=== PATIENT | female | born 1950 | race Caucasian/White ===

== ENCOUNTER → 2016-12-14 | Outpatient (CLI) | payer OTHER ==
--- NOTE | 2016-12-14 16:45 | MG ---
Examination: Unilateral left diagnostic mammogram and left breast ultrasound. Recent fall with devel opment of a left breast lump. Clinical history: Personal history of left breast carcinoma with left lumpectomy in 1996. Technique: Multiple digital images of the left breast were obtained. Targeted left breast ultrasound was also obtained evaluating the retroareolar region of the left breast in the area of palpable con cern. Comparison: 07/12/2016. Findings: The left breast is composed of scattered fibroglandular densities. A pacemaker device partially obsc ures visualization of the superior portion of the left breast. There are stable postsurgical changes from a left lumpectomy. Benign-appearing calcifications are no erika in the left breast. There is a new ill-defined area of increased density seen in the retroareolar region, correlating wi th the area of palpable concern. Targeted left breast ultrasound evaluating the retroareolar region of the left breast reveals an annie roximately 3.3 x 1.4 x 2.4 cm heterogeneous area with cystic and solid components seen at the 9 o'cl ock position in the retroareolar region of the left breast, correlating with the area of palpable co ncern. Findings likely represent an evolving hematoma. A followup left diagnostic mammogram and left breast ultrasound is recommended in 3 months to ensure resolution of the findings. Impression: 1. Probable evolving hematoma in the retroareolar region of the left breast, as described above. BI-RADS category 3/III (THREE) - PROBABLY BENIGN FINDING; SHORT INTERVAL FOLLOW-UP SUGGESTED. Recommend a followup left diagnostic mammogram and left breast ultrasound in 3 months to ensure reso lution of the findings. Diagnostic CAD was utilized and reviewed. * 0 (ZERO) - ASSESSMENT INCOMPLETE; ADDITIONAL IMAGING IS NEEDED. * 0C - ASSESSMENT INCOMPLETE, NEEDS ADDITIONAL IMAGING EVALUATION AND/OR PRIOR MAMMOGRAMS FOR COMPAR SUNITA. * 1/1 (ONE) - NEGATIVE. * 2/II (TWO) - BENIGN FINDINGS. * 3/III (THREE) - PROBABLY BENIGN FINDING; SHORT INTERVAL FOLLOW-UP SUGGESTED. * 4/IV (FOUR) - SUSPICIOUS ABNORMALITY; BIOPSY SHOULD BE CONSIDERED. * 5/V - HIGHLY SUSPICIOUS OF MALIGNANCY; BIOPSY SHOULD BE PERFORMED. * 6/IV - KNOWN BIOPSY PROVEN MALIGNANCY-APPROPRIATE ACTION SHOULD BE TAKEN. A NEGATIVE X-RAY REPORT SHOULD NOT DELAY BIOPSY IF A DOMINANT OR CLINICALLY SUSPICIOUS MASS IS PRESENT; 4 TO 8 PERCENT OF CANCERS ARE NOT IDENTIFIED BY X-RAY. A NEGATIVE REPORT MAY REINFORCE THE CLINICAL IMPRESSION. ADENOSIS AND DENSE BREASTS MAY OBSCURE AN UNDERLYING NEOPLASM. Reported By:
== END | disposition home or self-care (01) ==
LOC: RAD 14:22
PROVIDERS: ATTEND Internal Medicine
DX: N64.59 Other signs and symptoms in breast (principal); N63 Unspecified lump in breast; Z91.81 History of falling; Z85.3 Personal history of malignant neoplasm of breast
CPT/HCPCS: 76642; 77065

== ENCOUNTER → 2017-03-15 | Outpatient (CLI) | payer OTHER ==
--- NOTE | 2017-03-15 14:22 | MG ---
HISTORY: 3 month follow up left breast hematoma status post trauma Left breast digital diagnostic mammography with CAD. Comparison: December 14, 2016, July 12, 2016, and July 07, 2015 FINDINGS: CC and MLO projections of the left breast were obtained. Scattered fibroglandular tissue is seen to be present without suspicious interval change. The previously described subareolar focal asymmetry h as demonstrated decreased size and density with central lucency most consistent with resolving hemato ma and oil cyst formation/fat necrosis without an underlying suspicious mass or architectural distort ion. No skin thickening or nipple retraction is appreciated. No pathological lymphadenopathy can b e identified. Benign-appearing calcifications are noted. A left-sided cardiac pacing device is noted. IMPRESSION: NO RADIOGRAPHIC EVIDENCE OF MALIGNANCY. ACR CATEGORY 2 - benign findings. Return to bilateral mammographic screening in June 2017. Diagnostic CAD was utilized and reviewed. * 0 (ZERO) - ASSESSMENT INCOMPLETE; ADDITIONAL IMAGING IS NEEDED. * / (ONE) - NEGATIVE. * 2/II (TWO) - BENIGN FINDINGS. * 3/III (THREE) - PROBABLY BENIGN FINDING; SHORT INTERVAL FOLLOW-UP SUGGESTED. * 4/IV (FOUR) - SUSPICIOUS ABNORMALITY; BIOPSY SHOULD BE CONSIDERED. * 5/V (FIVE) - HIGHLY SUSPICIOUS OF MALIGNANCY; BIOPSY SHOULD BE PERFORMED. A NEGATIVE X-RAY REPORT SHOULD NOT DELAY BIOPSY IF A DOMINANT OR CLINICALLY SUSPICIOUS MASS IS PRESENT; 4 TO 8 PERCENT OF CANCERS ARE NOT IDENTIFIED BY X-RAY. A NEGA TIVE REPORT MAY REINFORCE THE CLINICAL IMPRESSION. ADENOSIS AND DENSE BREASTS MAY OBSCURE AN UNDERLY ING NEOPLASM. Reported By:
== END ==
LOC: RAD 13:38
PROVIDERS: ATTEND Internal Medicine
DX: N64.59 Other signs and symptoms in breast (principal); Z12.31 Encounter for screening mammogram for malignant neoplasm of breast
CPT/HCPCS: 77065

== ENCOUNTER 2017-08-14 11:29 | Inpatient (IN) | payer OTHER ==
[2017-08-14] MEDS ORDERED: TUSSIONEX PENNKINETIC SUSP PO PRN (12:53)
[2017-08-14 13:48] LABS: BASOPHILS % (AUTO) 0.8 % (0.2-1.0); EOSINOPHILS # (AUTO) 0.1 x10^3/uL (0.0-0.2); EOSINOPHILS % (AUTO) 1.8 % (0.9-2.9); HEMATOCRIT 37.5 % (36.0-47.0); HEMOGLOBIN 13.1 g/dL (12.0-16.0); LYMPHOCYTES # (AUTO) 3.4 X10^3/uL (1.3-2.9); LYMPHOCYTES % (AUTO) 65.8 % (21.0-51.0); MEAN CORPUSCULAR HEMOGLOBIN 30.3 pg (27.0-34.0); MEAN CORPUSCULAR HGB CONC 34.9 g/dL (33.0-35.0); MEAN CORPUSCULAR VOLUME 86.7 fL (80.0-100.0); MEAN PLATELET VOLUME 7.8 fL (7.4-11.0); MONOCYTES # (AUTO) 0.4 x10^3/uL (0.3-0.8); MONOCYTES % (AUTO) 8.5 % (0.0-13.0); NEUTROPHILS # (AUTO) 1.2 x10^3/uL (2.2-4.8); NEUTROPHILS % (AUTO) 23.1 % (42.0-75.0); PLATELET COUNT 228 X10^3/uL (150.0-450.0); RED BLOOD COUNT 4.33 X10^6/uL (3.5-5.4); RED CELL DISTRIBUTION WIDTH 12.8 % (11.6-16.5); WHITE BLOOD COUNT 5.2 X10^3/uL (3.6-10.0)
[2017-08-14] MEDS ORDERED: SALINE 3% 15 ML NEB TX ONE (13:49)
[2017-08-14 13:59] LABS: ALANINE AMINOTRANSFERASE 36 Units/L (12-78); ALBUMIN 3.9 g/dL (3.4-5.0); ALKALINE PHOSPHATASE 64 Units/L (46-116); ASPARTATE AMINO TRANSFERASE 33 Units/L (15-37); BLOOD UREA NITROGEN 32 mg/dL (7-18); CALCIUM 9.5 mg/dL (8.5-10.1); CARBON DIOXIDE 27.3 mmol/L (21-32); CHLORIDE 100 mmol/L (98-107); CREATININE 1.66 mg/dL (0.55-1.02); SODIUM 137 mmol/L (136-145); TOTAL PROTEIN 7.6 g/dL (6.4-8.2); eGFR BLACK RACES 40 (>60); eGFR NON BLACK RACES 33 (>60)
[2017-08-14] MEDS: TAMIFLU PO SCH ×2 (14:05→20:14)
[2017-08-14] MEDS: ROBITUSSIN DM PO SCH ×3 (14:05→20:31)
[2017-08-14 14:16] LABS: PLATELET MORPHOLOGY COMMENT NORMAL (NORMAL)
[2017-08-14 14:36] VITALS: BMI 37.1
[2017-08-14] MEDS ORDERED: XYLOCAINE 1 % (PLAIN) ONE (15:01)
--- NOTE | 2017-08-14 15:41 | RAD ---
HISTORY: 66-year-old female for verification of central line placement. Study: Frontal view of the chest. Comparison: None. Findings: Left chest AICD with leads overlying the right atrium and right ventricle. Partially imaged ACDF. Right subclavian approach central venous catheter with distal tip at the inferior cavoatrial junction . The trachea is midline. The cardiac silhouette is unremarkable low lung volumes. The lungs are reji r without focal consolidation, effusion or pneumothorax. Soft tissues are unremarkable. Osseous stru ctures are unremarkable. IMPRESSION: 1. Right subclavian central venous catheter with distal tip at the inferior cavoatrial junction, deep mmend retraction 5-7 cm. 2. No acute cardiopulmonary disease. Reported By:
[2017-08-14] MEDS ORDERED: NS 1/2 1000 ML IV 1,000 ML IV ONE (16:29)
[2017-08-14] MEDS: NS 1/2 1000 ML IV 1,000 ML IV SCH (16:34)
[2017-08-14] MEDS: LEVAQUIN PREMIX IV 750 MG 750 MG/150 ML BAG IV SCH (16:34)
[2017-08-14] MEDS: DUONEB 0.5 MG/3 MG NEB SCH ×2 (16:53→20:31)
[2017-08-14] MEDS ORDERED: POTASSIUM CHLORIDE LIQ 20 MEQ UDC PO PRN (19:05)
[2017-08-14] MEDS ORDERED: POTASSIUM CHL 60 MEQ/NS 0.45% 500 ML IV PRN (19:05)
[2017-08-14] MEDS ORDERED: POTASSIUM CHL 40 MEQ/NS 0.45% 500 ML IV PRN (19:05)
[2017-08-14] MEDS ORDERED: K-LYTE EFFERVESCENT PO PRN (19:05)
[2017-08-14] MEDS ORDERED: K-RIDER 10 MEQ/NS 100 ML 10 MEQ/100 ML BAG IV PRN (19:05)
[2017-08-14] MEDS ORDERED: MAGNESIUM SULFATE 1 GM/100 mL PREMIX 1 GM/100 ML BAG IV PRN (19:05)
[2017-08-15] MEDS: NORCO 5/325 MG TAB PO PRN ×2 (00:43→21:19)
[2017-08-15] MEDS: DUONEB 0.5 MG/3 MG NEB SCH ×6 (01:47→20:53)
[2017-08-15] MEDS ORDERED: NS 1/2 1000 ML IV 1,000 ML IV ONE ×2 (04:40→17:02)
[2017-08-15] MEDS: NS 1/2 1000 ML IV 1,000 ML IV SCH ×2 (05:20→17:00)
[2017-08-15 06:02] LABS: ALANINE AMINOTRANSFERASE 31 Units/L (12-78); ALBUMIN 3.1 g/dL (3.4-5.0); ALKALINE PHOSPHATASE 54 Units/L (46-116); ASPARTATE AMINO TRANSFERASE 24 Units/L (15-37); BLOOD UREA NITROGEN 31 mg/dL (7-18); CALCIUM 8.9 mg/dL (8.5-10.1); CARBON DIOXIDE 28.5 mmol/L (21-32); CHLORIDE 104 mmol/L (98-107); COR CA(FOR HYPOALB) 9.6 mg/dL (8.5-10.1); SODIUM 140 mmol/L (136-145); TOTAL PROTEIN 6.5 g/dL (6.4-8.2); eGFR BLACK RACES 48 (>60); eGFR NON BLACK RACES 40 (>60)
[2017-08-15 06:09] LABS: BASOPHILS % (AUTO) 0.5 % (0.2-1.0); EOSINOPHILS % (AUTO) 0.9 % (0.9-2.9); HEMATOCRIT 33.1 % (36.0-47.0); HEMOGLOBIN 11.5 g/dL (12.0-16.0); LYMPHOCYTES % (AUTO) 60.5 % (21.0-51.0); MEAN CORPUSCULAR HEMOGLOBIN 30.2 pg (27.0-34.0); MEAN CORPUSCULAR HGB CONC 34.8 g/dL (33.0-35.0); MEAN CORPUSCULAR VOLUME 86.9 fL (80.0-100.0); MEAN PLATELET VOLUME 7.7 fL (7.4-11.0); MONOCYTES # (AUTO) 0.4 x10^3/uL (0.3-0.8); MONOCYTES % (AUTO) 7.9 % (0.0-13.0); NEUTROPHILS # (AUTO) 1.5 x10^3/uL (2.2-4.8); NEUTROPHILS % (AUTO) 30.2 % (42.0-75.0); PLATELET COUNT 188 X10^3/uL (150.0-450.0); RED BLOOD COUNT 3.81 X10^6/uL (3.5-5.4); RED CELL DISTRIBUTION WIDTH 12.9 % (11.6-16.5)
[2017-08-15 07:28] LABS: BAND NEUTROPHILS % 3 % (0-10)
[2017-08-15 07:29] LABS: PLATELET MORPHOLOGY COMMENT NORMAL (NORMAL)
[2017-08-15] MEDS: LEVAQUIN PREMIX IV 750 MG 750 MG/150 ML BAG IV SCH (09:42)
[2017-08-15] MEDS: ROBITUSSIN DM PO SCH ×4 (09:43→21:18)
[2017-08-15] MEDS: TAMIFLU PO SCH ×2 (09:43→21:18)
[2017-08-15] MEDS ORDERED: CINNAMON BARK PO SCH (10:15)
[2017-08-15] MEDS ORDERED: GARLIC PO SCH (10:15)
--- NOTE | 2017-08-15 10:51 | DR.UPDATE ---
H&P Update History and Physical Update: WAS SEEN IN THE OFFICE ON 08/14/2017. A H&P WAS COMPLETED PRIOR TO ADMISSION. PATIENT HAS BEEN SEEN AND EXAMINED WITH NO CHANGES NOTED TO H&P. Changes noted: NO Yes with the following:
[2017-08-15] MEDS: SYNTHROID 75 mcg TAB PO SCH (10:55)
[2017-08-15] MEDS: CATAPRES TAB 0.1 MG PO SCH (10:55)
[2017-08-15] MEDS: PLAVIX PO SCH (10:55)
[2017-08-15] MEDS: SOLU-Medrol 40 MG VIAL IVP SCH ×3 (10:55→22:33)
[2017-08-15] MEDS: ASPIRIN EC 81 MG PO SCH (10:55)
[2017-08-15] MEDS: XANAX PO SCH ×2 (14:11→21:18)
[2017-08-15] MEDS: DIFLUCAN 200 MG IV PREMIX* 200 MG/100 ML BAG IV SCH (17:00)
[2017-08-15] MEDS ORDERED: XANAX PO SCH (21:00)
[2017-08-15] MEDS: LOPRESSOR TAB 50 MG PO SCH (21:18)
[2017-08-15] MEDS ORDERED: STERILE WATER IRRIGATION IR ONE (22:32)
[2017-08-16] MEDS: DUONEB 0.5 MG/3 MG NEB SCH ×6 (01:31→20:30)
[2017-08-16] MEDS ORDERED: NS 1/2 1000 ML IV 1,000 ML IV ONE ×2 (05:36→19:38)
[2017-08-16 05:45] LABS: BASOPHILS % (AUTO) 0.1 % (0.2-1.0); HEMATOCRIT 34.5 % (36.0-47.0); LYMPHOCYTES # (AUTO) 1.1 X10^3/uL (1.3-2.9); LYMPHOCYTES % (AUTO) 22.5 % (21.0-51.0); MEAN CORPUSCULAR HEMOGLOBIN 30.2 pg (27.0-34.0); MEAN CORPUSCULAR HGB CONC 34.7 g/dL (33.0-35.0); MEAN PLATELET VOLUME 7.7 fL (7.4-11.0); MONOCYTES # (AUTO) 0.4 x10^3/uL (0.3-0.8); NEUTROPHILS # (AUTO) 3.6 x10^3/uL (2.2-4.8); NEUTROPHILS % (AUTO) 70.4 % (42.0-75.0); PLATELET COUNT 218 X10^3/uL (150.0-450.0); RED BLOOD COUNT 3.96 X10^6/uL (3.5-5.4); RED CELL DISTRIBUTION WIDTH 12.8 % (11.6-16.5); WHITE BLOOD COUNT 5.1 X10^3/uL (3.6-10.0)
[2017-08-16] MEDS: SOLU-Medrol 40 MG VIAL IVP SCH ×3 (05:49→21:31)
[2017-08-16 06:11] LABS: ALANINE AMINOTRANSFERASE 28 Units/L (12-78); ALBUMIN 3.2 g/dL (3.4-5.0); ALKALINE PHOSPHATASE 55 Units/L (46-116); ASPARTATE AMINO TRANSFERASE 21 Units/L (15-37); BLOOD UREA NITROGEN 18 mg/dL (7-18); CALCIUM 9.3 mg/dL (8.5-10.1); CHLORIDE 103 mmol/L (98-107); COR CA(FOR HYPOALB) 9.9 mg/dL (8.5-10.1); COR NA(FOR HYPERGLY) 142 mmol/L (136-145); CREATININE 1.04 mg/dL (0.55-1.02); MAGNESIUM 1.2 mg/dL (1.7-2.9); SODIUM 141 mmol/L (136-145); TOTAL PROTEIN 6.8 g/dL (6.4-8.2); eGFR BLACK RACES > 60 (>60); eGFR NON BLACK RACES 56 (>60)
--- NOTE | 2017-08-16 07:35 | RAD ---
History: Dyspnea and chest pain. Exam: Single-view chest. Comparison: 08/14/2017. Findings: The trachea is midline. The cardiac silhouette is stable. Background changes of bronchitis/obstructiv e airways disease remain with right basilar subsegmental atelectasis. No new infiltrates are seen. Th ere is no evidence for CHF. There is a stable right-sided CVL and stable left-sided cardiac pacing de vice with leads projecting over the right atrium right ventricle. Cervical spinal hardware is noted. No other changes are appreciated. Impression: Background changes suggesting chronic bronchitis/obstructive airways disease with new right basilar s ubsegmental atelectasis without infiltrates or CHF/pleural effusions seen. Reported By:
[2017-08-16] MEDS: NS 1/2 1000 ML IV 1,000 ML IV SCH ×2 (08:44→21:31)
[2017-08-16] MEDS: DIFLUCAN 200 MG IV PREMIX* 200 MG/100 ML BAG IV SCH (08:44)
[2017-08-16] MEDS: LEVAQUIN PREMIX IV 750 MG 750 MG/150 ML BAG IV SCH (08:45)
[2017-08-16] MEDS: ROBITUSSIN DM PO SCH ×4 (08:45→21:31)
[2017-08-16] MEDS: TAMIFLU PO SCH ×2 (08:46→21:30)
[2017-08-16] MEDS: CATAPRES TAB 0.1 MG PO SCH (08:46)
[2017-08-16] MEDS: SYNTHROID 75 mcg TAB PO SCH (08:46)
[2017-08-16] MEDS: LOPRESSOR TAB 50 MG PO SCH ×2 (08:46→21:29)
[2017-08-16] MEDS: MAG-OX TAB PO PRN (08:46)
[2017-08-16] MEDS: COZAAR PO SCH (08:46)
[2017-08-16] MEDS: XANAX PO SCH ×2 (08:46→21:30)
[2017-08-16] MEDS: ASPIRIN EC 81 MG PO SCH (08:46)
[2017-08-16] MEDS: PREVACID PO SCH (08:47)
[2017-08-16] MEDS: PLAVIX PO SCH (08:57)
[2017-08-16] MEDS ORDERED: VITAMIN B-12 PO SCH (09:00)
[2017-08-16] MEDS ORDERED: TAB-A-VITE PO SCH (09:00)
[2017-08-16] MEDS ORDERED: LOVAZA PO SCH (09:00)
[2017-08-16] MEDS: NORCO 5/325 MG TAB PO PRN ×2 (14:52→21:30)
[2017-08-17] MEDS: DUONEB 0.5 MG/3 MG NEB SCH ×3 (00:51→08:38)
[2017-08-17] MEDS: SOLU-Medrol 40 MG VIAL IVP SCH (05:34)
[2017-08-17 05:48] LABS: ALANINE AMINOTRANSFERASE 25 Units/L (12-78); ALBUMIN 3.4 g/dL (3.4-5.0); ALKALINE PHOSPHATASE 53 Units/L (46-116); ASPARTATE AMINO TRANSFERASE 23 Units/L (15-37); BLOOD UREA NITROGEN 17 mg/dL (7-18); CALCIUM 9.4 mg/dL (8.5-10.1); CARBON DIOXIDE 27.7 mmol/L (21-32); CHLORIDE 104 mmol/L (98-107); COR NA(FOR HYPERGLY) 142 mmol/L (136-145); CREATININE 1.09 mg/dL (0.55-1.02); MAGNESIUM 1.3 mg/dL (1.7-2.9); SODIUM 141 mmol/L (136-145); TOTAL PROTEIN 7.1 g/dL (6.4-8.2); eGFR BLACK RACES > 60 (>60); eGFR NON BLACK RACES 53 (>60)
[2017-08-17 05:52] LABS: BASOPHILS % (AUTO) 0.1 % (0.2-1.0); HEMATOCRIT 35.3 % (36.0-47.0); HEMOGLOBIN 12.2 g/dL (12.0-16.0); LYMPHOCYTES # (AUTO) 1.1 X10^3/uL (1.3-2.9); LYMPHOCYTES % (AUTO) 14.2 % (21.0-51.0); MEAN CORPUSCULAR HEMOGLOBIN 30.3 pg (27.0-34.0); MEAN CORPUSCULAR HGB CONC 34.6 g/dL (33.0-35.0); MEAN CORPUSCULAR VOLUME 87.4 fL (80.0-100.0); MEAN PLATELET VOLUME 7.9 fL (7.4-11.0); MONOCYTES # (AUTO) 0.2 x10^3/uL (0.3-0.8); MONOCYTES % (AUTO) 2.5 % (0.0-13.0); NEUTROPHILS # (AUTO) 6.7 x10^3/uL (2.2-4.8); NEUTROPHILS % (AUTO) 83.2 % (42.0-75.0); PLATELET COUNT 243 X10^3/uL (150.0-450.0); RED BLOOD COUNT 4.04 X10^6/uL (3.5-5.4); RED CELL DISTRIBUTION WIDTH 13.1 % (11.6-16.5); WHITE BLOOD COUNT 8.1 X10^3/uL (3.6-10.0)
--- NOTE | 2017-08-17 06:54 | RAD ---
Examination: Portable AP chest History: SOB Comparison 08/16/2017 Findings: Persistent normal heart size with clear left lung and no change in position of cardiac pace maker. Stable linear atelectasis at the right base and parahilar area. Right subclavian catheter agai n noted. No pneumothorax seen. Impression: No change in appearance of the chest since 1 day earlier. Reported By:
[2017-08-17] MEDS: DIFLUCAN 200 MG IV PREMIX* 200 MG/100 ML BAG IV SCH (08:30)
[2017-08-17] MEDS: LEVAQUIN PREMIX IV 750 MG 750 MG/150 ML BAG IV SCH (08:31)
[2017-08-17] MEDS: PREVACID PO SCH (08:31)
[2017-08-17] MEDS: ASPIRIN EC 81 MG PO SCH (08:31)
[2017-08-17] MEDS: CATAPRES TAB 0.1 MG PO SCH (08:31)
[2017-08-17] MEDS: ROBITUSSIN DM PO SCH (08:31)
[2017-08-17] MEDS: TAMIFLU PO SCH (08:32)
[2017-08-17] MEDS: MAG-OX TAB PO PRN (08:32)
[2017-08-17] MEDS: SYNTHROID 75 mcg TAB PO SCH (08:32)
[2017-08-17] MEDS: COZAAR PO SCH (08:32)
[2017-08-17] MEDS: XANAX PO SCH (08:32)
[2017-08-17] MEDS: LOPRESSOR TAB 50 MG PO SCH (08:32)
[2017-08-17] MEDS: PLAVIX PO SCH (08:44)
[2017-08-17 11:37] VITALS: BP 136/73
[2017-08-17] MEDS: NS 1/2 1000 ML IV 1,000 ML IV SCH (11:55)
--- NOTE | 2017-08-17 18:34 | PCM.PROG ---
Progress Note - Progress Note for Day of Date: 08/15/17 - Subjective Subjective: WAS ADMITTED ON 08/14/2017. SHE IS BEING TREATED FOR PNEUMONIA AND INFLUENZA. TODAY, SHE IS ALERT AND ORIENTED, LYING IN BED ON MORNING ROUNDS. SHE IS NOTED WITH COMPLAINTS OF SHORTNESS OF BREATH AND PERSISTANT, PRODUCTIVE COUGH. ON EXAMINATION, HEART IS REGULAR IN RATE AND RHYTHM. BIALATERAL LUNGS ARE NOTED WITH HIGH PITCHED WHEEZING AND RHONCHI THROUGHOUT. ABDOMEN IS ROUND, SOFT, AND NON-TENDER WITH NORMAL BOWEL SOUNDS NOTED IN ALL QUADRANTS. THERE IS NORMAL RANGE OF MOTION NOTED TO ALL EXTREMITIES. HER VITALS THIS MORNING ARE 98.3-68-20-96%-149/85. LABS WERE OBTAINED THIS MORNING. ABNORMAL LAB VALUES INCLUDE THE FOLLOWING: HGB 11.5, HCT 33.1, BUN 31, CREATININE 1.40, GLUCOSE 102, ALBUMIN 3.1. BLOOD CULTURES AND SPUTUM CULTURES ARE PENDING. SPUTUM GRAM STAIN REPORTS NORMAL CHANCE AT DAY 1 WITH MODERATE YEAST. CONSULTED WITH PATIENT AND PLACED A CENTRAL LINE TO THE RIGHT SUBCLAVIAN VEIN YESTERDAY DUE TO POOR PERIPHERAL ACCESS. TODAY , WE WILL START SOLU-MEDROL 40MG IV Q8H AND DIFLUCAN 200MG IV DAILY. OTHERWISE, WE WILL CONTINUE WITH IV ANTIBIOTICS AND RESPIRATORY TREATMENTS. WE WILL REVIEW AND RESTART HOME MEDICATIONS APPROPRIATE. WE PLAN TO FOLLOW UP WITH AM LABS AND CHEST XRAY AND CONTINUE TO MONITOR PATIENT. - Past Medical Family Social History Past Med/Fam/Surg Hx: No changes since H&P Allergies: Allergies codeine Allergy (Verified 08/14/17 13:36) Thypruo-Bqk-Ksb Reductase Inhibitor Allergy (Verified 08/14/17 15:40) Sulfa (Sulfonamide Antibiotics) [SULFA] Allergy (Verified 08/14/17 13:36) - Review of Systems ROS: No change since H&P - Vital Signs and I&O's Vital Signs: Temperature 97.9 F Pulse Rate [Left Brachial] 77 Pulse Rate [Right Brachial] 83 Pulse Rate 77 Respiratory Rate 20 Blood Pressure [Left Arm] 147/90 Blood Pressure [Right Arm] 136/73 Blood Pressure 125/65 O2 Sat by Pulse Oximetry 97 Intake and Output: Intake & Output 08/15/17 08/16/17 08/17/17 08/18/17 11:59 11:59 11:59 11:59 Intake Total 2019 3657 Output Total 2486 3300 Balance 545 2210 357 - Physical Exam Oriented: Normal Eyes: Normal. negative: Blurred Vision, Diplopia, Discharge, Pain, Redness, Photophobia, Other Ear: negative: Normal, Right, Left, Swelling, Ecchymosis, Hemotypanum, Abrasion , Laceration Nose: Normal Throat: Normal Respiratory: Right, Generalized, Wheezes, Rhonchi Cardiovascular: Normal. negative: S3, S4, Murmur : Normal. negative: Dysuria, Hematuria, Frequency, Discharge, Bleeding, , Other Auscultation: Bowel Sounds: Normal. negative: Bruit, Absent, Increased, Decreased, High Pitched, Other Palpation: Normal Tenderness: Normal. negative: Rebound, Guarding, Rigidity Skin: Normal Musculoskeletal: Normal Psychiatric: Normal Mood Description: Calm Affect: Normal Speech Pattern: Clear, Appropriate - Laboratory and Diagnostics Result Diagrams: 08/17/17 04:05 08/17/17 04:05 Labs: 08/14/17 16:03 Blood Blood Culture - Preliminary 08/14/17 13:17 Blood Blood Culture - Preliminary 08/14/17 14:00 Sputum - Expectorated Sputum Sputum Culture - Final 08/14/17 14:00 Sputum - Expectorated Sputum - Final Laboratory WBC 8.1 X10^3/uL (3.6-10.0) 08/17/17 04:05 RBC 4.04 X10^6/uL (3.5-5.4) 08/17/17 04:05 Hgb 12.2 g/dL (12.0-16.0) 08/17/17 04:05 Hct 35.3 % (36.0-47.0) L 08/17/17 04:05 MCV 87.4 fL (80.0-100.0) 08/17/17 04:05 MCH 30.3 pg (27.0-34.0) 08/17/17 04:05 MCHC 34.6 g/dL (33.0-35.0) 08/17/17 04:05 RDW 13.1 % (11.6-16.5) 08/17/17 04:05 Plt Count 243 X10^3/uL (150.0-450.0) 08/17/17 04:05 Plt Count Comment Adequate (ADEQUATE) 08/15/17 04:10 MPV 7.9 fL (7.4-11.0) 08/17/17 04:05 Neut % 83.2 % (42.0-75.0) H 08/17/17 04:05 Lymph % 14.2 % (21.0-51.0) L 08/17/17 04:05 Elbert % 2.5 % (0.0-13.0) 08/17/17 04:05 Eos % 0.0 % (0.9-2.9) L 08/17/17 04:05 Baso % 0.1 % (0.2-1.0) L 08/17/17 04:05 Neut # 6.7 x10^3/uL (2.2-4.8) H 08/17/17 04:05 Lymph # 1.1 X10^3/uL (1.3-2.9) L 08/17/17 04:05 Elbert # 0.2 x10^3/uL (0.3-0.8) L 08/17/17 04:05 Eos # 0.0 x10^3/uL (0.0-0.2) 08/17/17 04:05 Baso # 0.0 X10^3/uL (0.0-0.1) 08/17/17 04:05 Absolute Nucleated RBC 0.0 /100WBC 08/17/17 04:05 Total Counted 100 08/15/17 04:10 Neutrophils % (Manual) 27 % (39-76) L 08/15/17 04:10 Band Neutrophils % 3 % (0-10) 08/15/17 04:10 Lymphocytes % (Manual) 59 % (13-43) H 08/15/17 04:10 Monocytes % (Manual) 8 % (4-9) 08/15/17 04:10 Atypical Lymphocytes 3 08/15/17 04:10 Plt Morphology Comment Normal (NORMAL) 08/15/17 04:10 RBC Morphology Normal (NORMAL) 08/15/17 04:10 Sodium 141 mmol/L (136-145) 08/17/17 04:05 Corrected Sodium 142 mmol/L (136-145) 08/17/17 04:05 Potassium 3.9 mmol/L (3.5-5.1) 08/17/17 04:05 Chloride 104 mmol/L (98-107) 08/17/17 04:05 Carbon Dioxide 27.7 mmol/L (21-32) 08/17/17 04:05 BUN 17 mg/dL (7-18) 08/17/17 04:05 Creatinine 1.09 mg/dL (0.55-1.02) H 08/17/17 04:05 Est GFR (MDRD) Af Amer > 60 (>60) 08/17/17 04:05 Est GFR (MDRD) Non-Af 53 (>60) L 08/17/17 04:05 Glucose 142 mg/dL (65-99) H 08/17/17 04:05 Calcium 9.4 mg/dL (8.5-10.1) 08/17/17 04:05 Corrected Calcium TNP 08/17/17 04:05 Magnesium 1.3 mg/dL (1.7-2.9) L 08/17/17 04:05 Total Bilirubin 0.20 mg/dL (0.2-1.0) 08/17/17 04:05 AST 23 Units/L (15-37) 08/17/17 04:05 ALT 25 Units/L (12-78) 08/17/17 04:05 Alkaline Phosphatase 53 Units/L (46-116) 08/17/17 04:05 Total Protein 7.1 g/dL (6.4-8.2) 08/17/17 04:05 Albumin 3.4 g/dL (3.4-5.0) 08/17/17 04:05 Globulin 3.7 g/dL (2.5-4.5) 08/17/17 04:05 Albumin/Globulin Ratio 0.9 Ratio (1.1-2.1) L 08/17/17 04:05 Influenza Type A (PCR) Positive (NEGATIVE) A 08/14/17 14:03 Influenza Type B (PCR) Negative (NEGATIVE) 08/14/17 14:03 - Plan (1) Pneumonia Status: Acute Qualifiers: Pneumonia type: due to unspecified organism Laterality: unspecified laterality Lung location: unspecified part of lung Qualified Code(s): J18.9 - Pneumonia, unspecified organism Plan: PNEUMONIA PROTOCOL, LEVAQUIN 750MG IV DAILY, RESPIRATORY TREATMENTS, SUPPLEMENTAL OXYGEN, CONTINUE TO MONITOR (2) Influenza Status: Acute Plan: TAMIFLU 75MG PO BID, CONTINUE TO MONITOR (3) Hypomagnesemia Status: Acute Plan: MAGNESIUM PROTOCOL, CONTINUE TO MONITOR
== END 2017-08-17 11:45 | disposition home or self-care (01) | DRG 153 ==
LOC: MED/SURG 11:29
PROVIDERS: ADMIT Internal Medicine; ATTEND Internal Medicine
PROC: 02HV33Z Insertion of Infusion Device into Superior Vena Cava, Percutaneous Approach (ICD-10-PCS; principal; 2017-08-14)
DX: J11.1 Influenza due to unidentified influenza virus with other respiratory manifestations (principal); J18.0 Bronchopneumonia, unspecified organism; R06.02 Shortness of breath; E83.42 Hypomagnesemia; R26.89 Other abnormalities of gait and mobility
CPT/HCPCS: 36415; 71045; 80053; 83735; 85025; 87040; 87070; 87205; 87502; 94640; 97535; A4217; A4222; G9035; J1450; J1956; J2001; J2920; J7620

== ENCOUNTER 2017-09-04 16:53 | Inpatient (IN) | payer OTHER ==
[2017-09-04 18:04] VITALS: BMI 37.1
[2017-09-04] MEDS ORDERED: HEPARIN SODIUM INJ 5000 UNITS ONE (18:07)
[2017-09-04] MEDS: NS 1000 ML 1,000 ML IV SCH (18:07)
[2017-09-04] MEDS: NORCO 10/325 TAB PO PRN (18:14)
[2017-09-04] MEDS: HEPARIN SODIUM IN D5W 25,000 UNITS/500 ML BAG IV PRN (18:15)
[2017-09-04] MEDS ORDERED: HEPARIN SODIUM INJ 5000 UNITS IVP ONE (18:20)
--- NOTE | 2017-09-04 20:45 | VAS ---
HISTORY: Elevated D-dimer and left leg pain. Study: Bilateral lower extremity ultrasound. Comparison: Left lower extremity ultrasound dated August 27, 2017. TECHNIQUE: Multiple luz scale and color flow Doppler images of the deep venous system were obtained of the right and left lower extremity. FINDINGS: The deep venous system of the right and left lower extremities were evaluated from the level of the c ommon femoral vein through the popliteal vein. Normal color flow, augmentation, and compression is s een within the right lower extremity. There is occlusive clot within the left superficial femoral vei n without evidence of compression or flow. The left common femoral vein and popliteal vein demonstrat e normal color flow, augmentation, and compression. Small left Melara's cyst. IMPRESSION: 1. No evidence of DVT within the right lower extremity. 2. Occlusive clot is seen within the left superficial femoral vein. Reported By:
[2017-09-04] MEDS: XANAX PO SCH (22:02)
[2017-09-05] MEDS: NS 1000 ML 1,000 ML IV SCH ×3 (06:47→21:15)
[2017-09-05 06:57] LABS: BASOPHILS # (AUTO) 0.1 X10^3/uL (0.0-0.1); BASOPHILS % (AUTO) 1.1 % (0.2-1.0); EOSINOPHILS # (AUTO) 0.1 x10^3/uL (0.0-0.2); EOSINOPHILS % (AUTO) 2.2 % (0.9-2.9); HEMATOCRIT 37.1 % (36.0-47.0); LYMPHOCYTES # (AUTO) 2.9 X10^3/uL (1.3-2.9); LYMPHOCYTES % (AUTO) 51.1 % (21.0-51.0); MEAN CORPUSCULAR HEMOGLOBIN 30.5 pg (27.0-34.0); MEAN CORPUSCULAR VOLUME 87.2 fL (80.0-100.0); MONOCYTES # (AUTO) 0.5 x10^3/uL (0.3-0.8); MONOCYTES % (AUTO) 8.4 % (0.0-13.0); NEUTROPHILS # (AUTO) 2.1 x10^3/uL (2.2-4.8); NEUTROPHILS % (AUTO) 37.2 % (42.0-75.0); PLATELET COUNT 284 X10^3/uL (150.0-450.0); RED BLOOD COUNT 4.26 X10^6/uL (3.5-5.4); RED CELL DISTRIBUTION WIDTH 13.5 % (11.6-16.5); WHITE BLOOD COUNT 5.6 X10^3/uL (3.6-10.0)
[2017-09-05 07:06] LABS: ALANINE AMINOTRANSFERASE 21 Units/L (12-78); ALBUMIN 3.4 g/dL (3.4-5.0); ALKALINE PHOSPHATASE 63 Units/L (46-116); ASPARTATE AMINO TRANSFERASE 20 Units/L (15-37); BLOOD UREA NITROGEN 21 mg/dL (7-18); CALCIUM 9.5 mg/dL (8.5-10.1); CARBON DIOXIDE 28.7 mmol/L (21-32); CHLORIDE 105 mmol/L (98-107); CREATININE 0.85 mg/dL (0.55-1.02); SODIUM 143 mmol/L (136-145); TOTAL PROTEIN 7.3 g/dL (6.4-8.2); eGFR BLACK RACES > 60 (>60); eGFR NON BLACK RACES > 60 (>60)
[2017-09-05] MEDS: NORCO 10/325 TAB PO PRN ×2 (07:30→18:29)
[2017-09-05] MEDS ORDERED: DIPRIVAN VIAL ONE (10:13)
[2017-09-05] MEDS ORDERED: GARLIC PO SCH (10:30)
[2017-09-05] MEDS ORDERED: PATIENT'S HOME MEDICATION PO SCH ×2 (10:30)
[2017-09-05] MEDS ORDERED: CINNAMON BARK PO SCH (10:30)
[2017-09-05] MEDS ORDERED: PATIENT'S HOME MEDICATION (Omega-3s/Dha/Epa/Fish Oil [Fish Oil 1,200 Mg Softgel] 1 TAB) PO SCH (10:30)
[2017-09-05] MEDS ORDERED: METOPROLOL TARTRATE PO SCH (10:30)
[2017-09-05] MEDS ORDERED: PATIENT'S HOME MEDICATION (Dexlansoprazole [Dexilant] 1 CAP) PO SCH (10:30)
[2017-09-05] MEDS ORDERED: NS 1000 ML 1,000 ML ONE (10:53)
[2017-09-05] MEDS ORDERED: XYLOCAINE-MPF 1% ONE (10:58)
[2017-09-05] MEDS ORDERED: ANCEF 1 GM IV PREMIX* 1 GM/50 ML BAG IV ONE ×2 (10:58→12:06)
--- NOTE | 2017-09-05 11:52 | DR.UPDATE ---
H&P Update History and Physical Update: History and Physical reviewed and patient examined. Changes noted: Yes with the following: PRESENTED TO THE OFFICE TODAY FOR A FOLLOW UP FOR INFLUENZA AND PNEUMONIA. SHE WAS ALSO NOTED WITH COMPLAINTS OF LEFT GROIN AND LEG PAIN X 10 DAYS AND MODERATE SHORTNESS OF BREATH. PATIENT WAS NOTED TO HAVE DECREASED OXYGEN SATURATIONS INTO THE HIGH 80S ON EXERTION. PATIENT WAS ADMITTED TO OBTAIN A VENOUS DOPPLER AND CHEST CT WITH CONTRAST TO RULE OUT DVT AND PULMONARY EMBOLISM. DUE TO POOR PERIPHERAL ACCESS, WE PLAN TO CONSULT FOR PORT A CATH PLACEMENT OR CENTRAL LINE.
[2017-09-05] MEDS ORDERED: FENTANYL INJ 100 mcg ONE (12:10)
[2017-09-05] MEDS ORDERED: NS IRRIGATION 1000 ML 1,000 ML with BACITRACIN VIAL 50,000 UNT IR ONE ×2 (12:32)
--- NOTE | 2017-09-05 13:44 | RAD ---
History: Postop Port-A-Cath placement Study: Chest AP portable Findings: AP portable examination of chest is performed and comparison made to the study 08/17/2017. Previous right subclavian catheter has been removed placement of a right subclavian Port-A-Cath tip n ear the caval atrial junction. There is no pneumothorax. The left-sided permanent cardiac pacemaker r emains in place. Plate and screws at the base the cervical spine are again identified. Impression: Interval placement of right subclavian Port-A-Cath in appropriate position. Reported By:
[2017-09-05] MEDS: HYDROCHLOROTHIAZIDE 25 MG TAB PO SCH (14:28)
[2017-09-05] MEDS: LOPRESSOR TAB 50 MG PO SCH ×2 (14:28→21:14)
[2017-09-05] MEDS: CATAPRES TAB 0.1 MG PO SCH (14:28)
[2017-09-05] MEDS ORDERED: HEPARIN SODIUM INJ 5000 UNITS IVP ONE (15:09)
[2017-09-05] MEDS: SYNTHROID 75 mcg TAB PO SCH (17:06)
[2017-09-05] MEDS: TAB-A-VITE PO SCH (17:06)
[2017-09-05] MEDS: VITAMIN B-12 PO SCH (17:06)
[2017-09-05] MEDS: HEPARIN SODIUM IN D5W 25,000 UNITS/500 ML BAG IV PRN ×2 (18:30→23:05)
[2017-09-05] MEDS: MAG-OX TAB PO SCH (21:15)
[2017-09-05] MEDS: XANAX PO SCH (21:15)
[2017-09-06] MEDS ORDERED: STERILE WATER IRRIGATION IR ONE ×2 (00:01→00:02)
[2017-09-06 06:35] LABS: ALANINE AMINOTRANSFERASE 16 Units/L (12-78); ALBUMIN 3.1 g/dL (3.4-5.0); ALKALINE PHOSPHATASE 57 Units/L (46-116); ASPARTATE AMINO TRANSFERASE 25 Units/L (15-37); BLOOD UREA NITROGEN 15 mg/dL (7-18); CALCIUM 9.1 mg/dL (8.5-10.1); CARBON DIOXIDE 26.4 mmol/L (21-32); CHLORIDE 106 mmol/L (98-107); COR CA(FOR HYPOALB) 9.8 mg/dL (8.5-10.1); CREATININE 0.82 mg/dL (0.55-1.02); SODIUM 142 mmol/L (136-145); TOTAL PROTEIN 6.6 g/dL (6.4-8.2); eGFR BLACK RACES > 60 (>60); eGFR NON BLACK RACES > 60 (>60)
[2017-09-06 06:42] LABS: BASOPHILS % (AUTO) 0.7 % (0.2-1.0); EOSINOPHILS # (AUTO) 0.2 x10^3/uL (0.0-0.2); EOSINOPHILS % (AUTO) 2.8 % (0.9-2.9); HEMATOCRIT 33.2 % (36.0-47.0); HEMOGLOBIN 11.5 g/dL (12.0-16.0); LYMPHOCYTES # (AUTO) 3.1 X10^3/uL (1.3-2.9); LYMPHOCYTES % (AUTO) 48.6 % (21.0-51.0); MEAN CORPUSCULAR HEMOGLOBIN 30.3 pg (27.0-34.0); MEAN CORPUSCULAR HGB CONC 34.5 g/dL (33.0-35.0); MEAN CORPUSCULAR VOLUME 87.7 fL (80.0-100.0); MEAN PLATELET VOLUME 7.7 fL (7.4-11.0); MONOCYTES # (AUTO) 0.6 x10^3/uL (0.3-0.8); MONOCYTES % (AUTO) 10.2 % (0.0-13.0); NEUTROPHILS # (AUTO) 2.4 x10^3/uL (2.2-4.8); NEUTROPHILS % (AUTO) 37.7 % (42.0-75.0); PLATELET COUNT 266 X10^3/uL (150.0-450.0); RED BLOOD COUNT 3.79 X10^6/uL (3.5-5.4); RED CELL DISTRIBUTION WIDTH 13.7 % (11.6-16.5); WHITE BLOOD COUNT 6.4 X10^3/uL (3.6-10.0)
[2017-09-06] MEDS: HEPARIN SODIUM IN D5W 25,000 UNITS/500 ML BAG IV PRN (08:16)
[2017-09-06] MEDS ORDERED: NS 100 ML IV 100 ML IV ONE (08:38)
[2017-09-06] MEDS: NORCO 10/325 TAB PO PRN ×2 (10:41→20:34)
--- NOTE | 2017-09-06 10:53 | CT ---
HISTORY: Shortness of breath, left lower extremity DVTs Study: CTA chest Comparison: Chest x-ray done 09/05/2017. Technique: Multiple axial images of the chest were obtained from the thoracic inlet to the upper abdo men during the administration of IV contrast. In addition to standard multi planar reconstructions, M IP reconstructions were performed in axial, coronal and sagittal planes. Dose reduction techniques ut ilized automatic exposure control. Findings: Right-sided Port-A-Cath is present with the tip in the lower SVC. Left-sided pacemaker is present wit h metallic leads. A few small lymph nodes are present within the central mediastinum and in the aortopulmonary window. These do not appear pathologic by size or configuration. There is no pericardial effusion observed. The thoracic aorta is normal in its contour without evidence for aneurysmal dilatation. Calcificatio ns are present within the LAD. The central pulmonary arterial system does not demonstrate central esdras ling defects to suggest pulmonary emboli. Evaluation of the lung parenchyma reveals very mild cylindrical bronchiectasis. An area of linear sca rring is present involving the superior segment of the right lower lobe. No dense consolidation, pleu ral fluid or nodule is seen.. There are surgical clips present in the left axilla. The bony thorax is unremarkable in its appearance. Liver and adrenal glands are unremarkable. The gallbladder is sharath gically absent.. IMPRESSION: No evidence of thoracic aortic aneurysm or pulmonary embolus. LAD calcifications. Mild cylindrical bronchiectasis. A small linear scar is present in the superior segment of the right lower lobe. No infiltrate or pleural fluid is seen. Reported By:
--- NOTE | 2017-09-06 10:55 | PCM.PROG ---
Progress Note - Progress Note for Day of Date: 09/05/17 - Subjective Subjective: WAS A DIRECT ADMISSION FOR HYPOXIA, SHORTNESS OF BREATH, AND LEFT GROIN/LEG PAIN. A VENOUS DOPPLER REPORTED AN OCCLUSIVE CLOT WITHIN THE LEFT SUPERFICIAL FEMORAL VEIN. TODAY, PATIENT IS ALERT AND ORIENTED, LYING IN BED ON MORNING ROUNDS. SHE CONTINUES WITH COMPLAINTS OF SHORTNESS OF BREATH AND LEFT GROIN PAIN. SHE CONTINUES ON A HEPARIN DRIP THIS MORNING. ON EXAMINATION, HEART IS REGULAR IN RATE AND RHYTHM. BILATERAL LUNGS ARE NOTED WITH DIMINISHED LUNG SOUNDS THROUGHOUT. ABDOMEN IS ROUND, SOFT, AND NON-TENDER WITH NORMAL BOWEL SOUNDS NOTED IN ALL QUADRANTS. LEFT UPPER LEG IS NOTED WITH REDNESS AND WARMTH. THERE IS NORMAL RANGE OF MOTION NOTED TO ALL EXTREMITIES. HER VITALS THIS MORNING ARE 98.0-74-13-99% RA-171/88. LABS WERE OBTAINED THIS MORNING. SHE REMAINS HEMODYNAMICALLY STABLE. DUE TO POOR PERIPHERAL ACCESS, WE WILL CONSULT FOR PLACEMENT OF A PORT A CATH. PATIENT IS IN STABLE CONDITION FOR PROCEDURE. AFTER PORT A CATH IS PLACED, WE PLAN TO OBTAIN A CHEST CT WITH CONTRAST TO RULE OUT A PULMONARY EMBOLISM. OTHERWISE, WE WILL CONTINUE WITH CURRENT PLAN OF CARE. WE PLAN TO FOLLOW UP WITH AM LABS AND CONTINUE TO MONITOR PATIENT. - Past Medical Family Social History Past Med/Fam/Surg Hx: No changes since H&P Allergies: Allergies codeine Allergy (Verified 08/14/17 13:36) Ewyhvgj-Ord-Gkq Reductase Inhibitor Allergy (Verified 08/14/17 15:40) Sulfa (Sulfonamide Antibiotics) [SULFA] Allergy (Verified 08/14/17 13:36) levofloxacin [From Levaquin] Adverse Reaction (Verified 09/05/17 11:59) - Review of Systems ROS: No change since H&P - Vital Signs and I&O's Vital Signs: Temperature 98.0 F Pulse Rate [Apical] 70 Pulse Rate 78 Respiratory Rate 13 Blood Pressure [Left Arm] 163/90 Blood Pressure [Right Arm] 136/73 Blood Pressure 184/81 O2 Sat by Pulse Oximetry 100 Intake and Output: Intake & Output 09/03/17 09/04/17 09/05/17 09/06/17 11:59 11:59 11:59 11:59 Intake Total 1367 3791 Output Total 1605 Balance 1367 2186 - Physical Exam Oriented: Normal Eyes: Normal Ear: Normal Nose: Normal Throat: Normal Respiratory: Right, Left, Generalized, Diminished Cardiovascular: Normal. negative: S3, S4, Murmur : Normal Auscultation: Bowel Sounds: Normal Palpation: Normal Tenderness: Normal. negative: Rebound, Guarding, Rigidity Skin: Normal Musculoskeletal: Left, Leg, Swelling, Tender Psychiatric: Normal Mood Description: Calm Affect: Normal Speech Pattern: Clear, Appropriate - Laboratory and Diagnostics Result Diagrams: 09/06/17 05:36 09/06/17 05:00 Labs: Laboratory WBC 6.4 X10^3/uL (3.6-10.0) 09/06/17 05:36 RBC 3.79 X10^6/uL (3.5-5.4) 09/06/17 05:36 Hgb 11.5 g/dL (12.0-16.0) L 09/06/17 05:36 Hct 33.2 % (36.0-47.0) L 09/06/17 05:36 MCV 87.7 fL (80.0-100.0) 09/06/17 05:36 MCH 30.3 pg (27.0-34.0) 09/06/17 05:36 MCHC 34.5 g/dL (33.0-35.0) 09/06/17 05:36 RDW 13.7 % (11.6-16.5) 09/06/17 05:36 Plt Count 266 X10^3/uL (150.0-450.0) 09/06/17 05:36 MPV 7.7 fL (7.4-11.0) 09/06/17 05:36 Neut % 37.7 % (42.0-75.0) L 09/06/17 05:36 Lymph % 48.6 % (21.0-51.0) 09/06/17 05:36 [place] % 10.2 % (0.0-13.0) 09/06/17 05:36 Eos % 2.8 % (0.9-2.9) 09/06/17 05:36 Baso % 0.7 % (0.2-1.0) 09/06/17 05:36 Neut # 2.4 x10^3/uL (2.2-4.8) 09/06/17 05:36 Lymph # 3.1 X10^3/uL (1.3-2.9) H 09/06/17 05:36 [place] # 0.6 x10^3/uL (0.3-0.8) 09/06/17 05:36 Eos # 0.2 x10^3/uL (0.0-0.2) 09/06/17 05:36 Baso # 0.0 X10^3/uL (0.0-0.1) 09/06/17 05:36 Absolute Nucleated RBC 0.1 /100WBC 09/06/17 05:36 INR Target Range - 09/04/17 18:35 INR 1.05 (0.8-1.3) 09/04/17 18:35 PTT 145.3 SECONDS (22.9-36.5) H* 09/06/17 05:36 PTT Comment - 09/06/17 05:36 Sodium 142 mmol/L (136-145) 09/06/17 05:00 Corrected Sodium TNP 09/06/17 05:00 Potassium 4.0 mmol/L (3.5-5.1) 09/06/17 05:00 Chloride 106 mmol/L (98-107) 09/06/17 05:00 Carbon Dioxide 26.4 mmol/L (21-32) 09/06/17 05:00 BUN 15 mg/dL (7-18) 09/06/17 05:00 Creatinine 0.82 mg/dL (0.55-1.02) 09/06/17 05:00 Est GFR (MDRD) Af Amer > 60 (>60) 09/06/17 05:00 Est GFR (MDRD) Non-Af > 60 (>60) 09/06/17 05:00 Glucose 91 mg/dL (65-99) 09/06/17 05:00 Calcium 9.1 mg/dL (8.5-10.1) 09/06/17 05:00 Corrected Calcium 9.8 mg/dL (8.5-10.1) 09/06/17 05:00 Total Bilirubin 0.40 mg/dL (0.2-1.0) 09/06/17 05:00 AST 25 Units/L (15-37) 09/06/17 05:00 ALT 16 Units/L (12-78) 09/06/17 05:00 Alkaline Phosphatase 57 Units/L (46-116) 09/06/17 05:00 Total Protein 6.6 g/dL (6.4-8.2) 09/06/17 05:00 Albumin 3.1 g/dL (3.4-5.0) L 09/06/17 05:00 Globulin 3.5 g/dL (2.5-4.5) 09/06/17 05:00 Albumin/Globulin Ratio 0.9 Ratio (1.1-2.1) L 09/06/17 05:00 - Plan (1) Deep vein thrombosis (DVT) of femoral vein of left lower extremity Status: Acute Qualifiers: Chronicity: acute Qualified Code(s): I82.412 - Acute embolism and thrombosis of left femoral vein Plan: HEPARIN DRIP, CONTINUE TO MONITOR
[2017-09-06] MEDS: MAG-OX TAB PO SCH ×2 (11:23→20:34)
[2017-09-06] MEDS: SYNTHROID 75 mcg TAB PO SCH ×2 (11:23→16:47)
[2017-09-06] MEDS: CATAPRES TAB 0.1 MG PO SCH (11:23)
[2017-09-06] MEDS: HYDROCHLOROTHIAZIDE 25 MG TAB PO SCH (11:23)
[2017-09-06] MEDS: LOVAZA PO SCH (11:23)
[2017-09-06] MEDS: LOPRESSOR TAB 50 MG PO SCH ×2 (11:23→20:34)
[2017-09-06] MEDS: NS 1000 ML 1,000 ML IV SCH (11:28)
[2017-09-06] MEDS ORDERED: HEPARIN SODIUM INJ 5000 UNITS IVP ONE ×2 (14:47→15:20)
[2017-09-06] MEDS ORDERED: HEPARIN SODIUM INJ 5000 UNITS ONE (15:23)
[2017-09-06] MEDS: VITAMIN B-12 PO SCH (17:56)
[2017-09-06] MEDS: TAB-A-VITE PO SCH (17:56)
[2017-09-06] MEDS: XANAX PO SCH (20:34)
[2017-09-07] MEDS: NS 1000 ML 1,000 ML IV SCH ×2 (00:23→05:07)
[2017-09-07] MEDS: HEPARIN SODIUM IN D5W 25,000 UNITS/500 ML BAG IV PRN (00:24)
[2017-09-07] MEDS: NORCO 10/325 TAB PO PRN (03:31)
[2017-09-07 06:11] LABS: BASOPHILS % (AUTO) 0.7 % (0.2-1.0); EOSINOPHILS # (AUTO) 0.1 x10^3/uL (0.0-0.2); EOSINOPHILS % (AUTO) 2.6 % (0.9-2.9); HEMATOCRIT 28.7 % (36.0-47.0); HEMOGLOBIN 9.9 g/dL (12.0-16.0); LYMPHOCYTES # (AUTO) 2.6 X10^3/uL (1.3-2.9); LYMPHOCYTES % (AUTO) 46.6 % (21.0-51.0); MEAN CORPUSCULAR HEMOGLOBIN 30.4 pg (27.0-34.0); MEAN CORPUSCULAR HGB CONC 34.6 g/dL (33.0-35.0); MEAN CORPUSCULAR VOLUME 87.8 fL (80.0-100.0); MEAN PLATELET VOLUME 7.4 fL (7.4-11.0); MONOCYTES # (AUTO) 0.5 x10^3/uL (0.3-0.8); MONOCYTES % (AUTO) 9.2 % (0.0-13.0); NEUTROPHILS # (AUTO) 2.3 x10^3/uL (2.2-4.8); NEUTROPHILS % (AUTO) 40.9 % (42.0-75.0); PLATELET COUNT 235 X10^3/uL (150.0-450.0); RED BLOOD COUNT 3.27 X10^6/uL (3.5-5.4); RED CELL DISTRIBUTION WIDTH 13.7 % (11.6-16.5); WHITE BLOOD COUNT 5.6 X10^3/uL (3.6-10.0)
[2017-09-07 06:36] LABS: ALANINE AMINOTRANSFERASE 14 Units/L (12-78); ALBUMIN 2.7 g/dL (3.4-5.0); ALKALINE PHOSPHATASE 50 Units/L (46-116); ASPARTATE AMINO TRANSFERASE 15 Units/L (15-37); BLOOD UREA NITROGEN 14 mg/dL (7-18); CALCIUM 8.9 mg/dL (8.5-10.1); CARBON DIOXIDE 26.7 mmol/L (21-32); CHLORIDE 107 mmol/L (98-107); COR CA(FOR HYPOALB) 9.9 mg/dL (8.5-10.1); CREATININE 0.83 mg/dL (0.55-1.02); SODIUM 143 mmol/L (136-145); TOTAL PROTEIN 5.7 g/dL (6.4-8.2); eGFR BLACK RACES > 60 (>60); eGFR NON BLACK RACES > 60 (>60)
[2017-09-07] MEDS: CATAPRES TAB 0.1 MG PO SCH (09:42)
[2017-09-07] MEDS: LOPRESSOR TAB 50 MG PO SCH (09:42)
[2017-09-07] MEDS: LOVAZA PO SCH (09:43)
[2017-09-07] MEDS: MAG-OX TAB PO SCH (09:43)
[2017-09-07] MEDS: HYDROCHLOROTHIAZIDE 25 MG TAB PO SCH (09:49)
[2017-09-07] MEDS ORDERED: VERSED ONE (10:08)
[2017-09-07] MEDS ORDERED: DIPRIVAN VIAL ONE (10:08)
[2017-09-07 14:33] VITALS: BP 146/68
[2017-09-07] MEDS: SYNTHROID 75 mcg TAB PO SCH (16:51)
== END 2017-09-07 15:50 | disposition home or self-care (01) | DRG 301 ==
LOC: ICU 16:53
PROVIDERS: ADMIT Internal Medicine; ATTEND Internal Medicine
PROC: 02HV33Z Insertion of Infusion Device into Superior Vena Cava, Percutaneous Approach (ICD-10-PCS; principal; 2017-09-05 12:00)
DX: I82.412 Acute embolism and thrombosis of left femoral vein (principal); R06.02 Shortness of breath; R79.1 Abnormal coagulation profile; R07.89 Other chest pain; R09.02 Hypoxemia; R10.30 Lower abdominal pain, unspecified; M79.605 Pain in left leg; M79.1 Myalgia; Z95.0 Presence of cardiac pacemaker; I87.2 Venous insufficiency (chronic) (peripheral)
CPT/HCPCS: 36415; 71045; 71275; 76000; 80053; 85025; 85610; 85730; 93005; 93970; A4217; A4222; J0690; J1644; J2250; J3010; J3490

== ENCOUNTER → 2017-09-04 | Outpatient (CLI) | payer OTHER ==
[2017-08-17 11:37] VITALS: BP 136/73
[~2017-09-04] MED LIST: NS 100 ML IV 0 ML IV ONE
[2017-09-04 13:20] LABS: BASOPHILS # (AUTO) 0.1 X10^3/uL (0.0-0.1); BASOPHILS % (AUTO) 0.9 % (0.2-1.0); EOSINOPHILS # (AUTO) 0.1 x10^3/uL (0.0-0.2); EOSINOPHILS % (AUTO) 1.6 % (0.9-2.9); HEMATOCRIT 36.7 % (36.0-47.0); HEMOGLOBIN 12.7 g/dL (12.0-16.0); LYMPHOCYTES # (AUTO) 2.7 X10^3/uL (1.3-2.9); LYMPHOCYTES % (AUTO) 44.5 % (21.0-51.0); MEAN CORPUSCULAR HEMOGLOBIN 30.1 pg (27.0-34.0); MEAN CORPUSCULAR HGB CONC 34.5 g/dL (33.0-35.0); MEAN CORPUSCULAR VOLUME 87.3 fL (80.0-100.0); MEAN PLATELET VOLUME 6.8 fL (7.4-11.0); MONOCYTES # (AUTO) 0.5 x10^3/uL (0.3-0.8); MONOCYTES % (AUTO) 7.6 % (0.0-13.0); NEUTROPHILS # (AUTO) 2.7 x10^3/uL (2.2-4.8); NEUTROPHILS % (AUTO) 45.4 % (42.0-75.0); PLATELET COUNT 286 X10^3/uL (150.0-450.0); RED CELL DISTRIBUTION WIDTH 13.3 % (11.6-16.5)
[2017-09-04 13:33] LABS: ALANINE AMINOTRANSFERASE 22 Units/L (12-78); ALBUMIN 3.8 g/dL (3.4-5.0); ALKALINE PHOSPHATASE 66 Units/L (46-116); ASPARTATE AMINO TRANSFERASE 21 Units/L (15-37); BLOOD UREA NITROGEN 25 mg/dL (7-18); CALCIUM 9.8 mg/dL (8.5-10.1); CARBON DIOXIDE 34.2 mmol/L (21-32); CHLORIDE 102 mmol/L (98-107); SODIUM 142 mmol/L (136-145); TOTAL PROTEIN 7.7 g/dL (6.4-8.2); eGFR BLACK RACES > 60 (>60); eGFR NON BLACK RACES 53 (>60)
== END ==
LOC: RAD 12:44
PROVIDERS: ATTEND Nurse Practitioner Family
DX: R07.89 Other chest pain (principal); R06.02 Shortness of breath; R09.02 Hypoxemia; M79.604 Pain in right leg; M79.605 Pain in left leg; R79.1 Abnormal coagulation profile
CPT/HCPCS: 36415; 80053; 85025; 85378; A4222

== ENCOUNTER → 2017-12-11 | Outpatient (CLI) | payer OTHER ==
--- NOTE | 2017-12-11 17:30 | VAS ---
HISTORY: Right leg pain and edema. Study: Bilateral lower extremity ultrasound. Comparison: Bilateral lower extremity ultrasound dated September 04, 2017. TECHNIQUE: Multiple luz scale and color flow Doppler images of the deep venous system were obtained of the right and left lower extremity. FINDINGS: The deep venous system of the right and left lower extremities were evaluated from the level of the c ommon femoral vein through the popliteal vein. Normal color flow and augmentation can be observed. In addition, normal compression is seen throughout the deep venous system. IMPRESSION: Negative for DVT. Reported By:
== END ==
LOC: RAD 16:12
PROVIDERS: ATTEND Nurse Practitioner Family
DX: Z86.718 Personal history of other venous thrombosis and embolism (principal); M79.605 Pain in left leg; R60.0 Localized edema
CPT/HCPCS: 93970